=== PATIENT | female | born 1945 | race Caucasian/White ===

== ENCOUNTER 2021-02-03 17:41 | Emergency (ER) | payer MEDICARE, SELFPAY ==
--- NOTE | ~2021-02-03 | XR_ITS ---
EXAMINATION: XR CHEST CLINICAL INFORMATION: Shortness of breath COMPARISON: Chest x-ray on 06/21/2016 TECHNIQUE: Frontal view of the chest was obtained. FINDINGS: No significant abnormality is noted involving the heart, lungs, mediastinum, bony thorax or soft tissues. XR/XR chest 1V IMPRESSION: Unremarkable examination.
[2021-02-03 17:56] VITALS: BP 166/69; PULSE 76; RESP 18; TEMP 36.6; O2SAT 95; BMI 22.8
--- NOTE | 2021-02-03 18:00 | ECG_ITS ---
Test Reason : DYSPNEA Blood Pressure : / mmHG Vent. Rate : 080 BPM Atrial Rate : 080 BPM P-R Int : 142 ms QRS Dur : 078 ms QT Int : 358 ms P-R-T Axes : 053 042 063 degrees QTc Int : 412 ms Normal sinus rhythm Normal ECG No previous ECGs available Referred By: Adalgisa Oquendo Electronically Signed By:TAYLOR VILLA
--- NOTE | 2021-02-03 18:01 | ED.SOB ---
HPI - SOB/Dyspnea General Chief Complaint: Dyspnea Stated Complaint: SOB Time Seen by Provider: 02/03/21 17:48 Source: patient Mode of arrival: ambulatory History of Present Illness HPI Narrative: 75-year-old female with a past medical history of scleroderma, anxiety, sent in from PCPs office with noted hypoxia with an O2 sat of 84% on room air during ambulation in office today. Patient reports worsening SOB, exacerbated on exertion, & chest discomfort with deep inspiration x1 week. Report associated generalized fatigue/weakness, mild cough, chills. Denies fever, chest pain, abdominal pain, nausea/vomiting, pedal edema, cigarette smoking, recent travel, history of blood clots Admits recently finished antibiotics for UTI MD elicited complaint: shortness of breath and pain with inspiration Onset (ago): week(s) Timing: constant and progressively worsening Severity: moderate Relieving factors: rest Associated symptoms: pain with inspiration and lightheadedness Treatment prior to arrival: none Related Data Home Medications Medication Instructions Recorded Confirmed celecoxib 100 mg capsule 1 cap PO BID 02/03/21 02/03/21 lorazepam 1 mg tablet 1 tab PO BEDTIME PRN 02/03/21 02/03/21 omeprazole 20 mg capsule,delayed 20 mg PO DAILY 02/03/21 02/03/21 release Allergies Allergy/AdvReac Type Severity Reaction Status Date / Time codeine [CODEINE] Allergy Mild NAUSEA Unverified 11/20/19 15:43 Review of Systems Review of Systems: Constitutional: No Fever, No Chills, + Fatigue, + Malaise ENT/Mouth: No Ear Pain, No Nasal Congestion, No Sinus Pain, No sore throat, No Rhinorrhea, No Swallowing Difficulty Eyes: No Eye Pain, No Swelling, No Redness, No Discharge, No Vision Changes Cardiovascular: + Chest Pain on deep inspiration, + SOB, + Dyspnea on Exertion, No Orthopnea, No Edema, No Palpitations Respiratory: + Cough, No Smoke Exposure, No Dyspnea Gastrointestinal: No Nausea, No Vomiting, No Diarrhea, No Abdominal pain Genitourinary: No Dysuria, No Hematuria, No Urgency, No Flank Pain Musculoskeletal: No joint pain, No Myalgias, No Joint Swelling Skin: No Skin Lesions, No rash Neuro: No Weakness, No Numbness, No Paresthesias, +lightheadedness (not at present), No Headache Yes all other systems are reviewed and are negative Neurologic: Denies Abnormal speech present [facility] Past Medical History Attestation statement: The following information was validated with the patient. Medical History Anxiety Scleroderma Social History Social History Advance Directives: Yes Advance Directives Information Provided: No Advance Directives on File: No Physical Exam Vital Signs: Vital Signs: Last Vital Signs Temp 98.2 F 02/03/21 19:07 Pulse 74 02/03/21 19:07 Resp 15 02/03/21 19:07 BP 156/71 H 02/03/21 19:07 Pulse Ox 95 02/03/21 19:07 BMI result Body Mass Index 22.8 Const: General: cooperative, comfortable and no acute distress Orientation/consciousness: patient oriented x3 Limitations: no limitations HENMT: Head: Yes normal to inspection Ears: hearing grossly normal bilaterally General nose exam: Normal external nose present Face and sinus: Yes normal facial exam Mouth: Normal oral and palatal mucosa present Throat: Yes posterior oropharynx normal, Yes tonsils normal and Yes uvula midline Eyes: General: appearance normal, both eyes and all related structures EOM: EOMs intact bilaterally Neck: Neck: Yes normal visual inspection and Yes no meningeal signs Resp: Effort & Inspection: normal respiratory effort and not tachypneic Auscultation: clear to auscultation bilaterally, no rales, no rhonchi and no wheezes Cardio: Rate: regular rate Heart sounds: S1 normal heart sound present and S2 normal heart sound present GI: Inspection: Yes normal to inspection Palpation (GI): Soft to palpation, nontender, no guarding and not rigid Skin: Rashes: no rashes Wounds: no wounds Neuro: General: patient oriented x3, gait normal, tone normal, moves all extremities, no meningeal signs, no focal motor deficits and CN's II-XI intact bilaterally Cranial nerves: Yes CN's II-XII intact bilaterally Cognition (Neuro): normal cognition Speech: No Abnormal speech present Gait exam (Neuro): Normal gait present Motor exam (neuro): 5/5 motor strength present throughout, Pronator motor function not present and no tremor noted Extrem: General: Yes normal to inspection and Yes no pedal edema Course Course Course Narrative: -1929--no leukocytosis. D-dimer negative > PE less likely >> patient with history of Raynaud's, difficult to obtain O2 sat on which could be reason for noted hypoxia in office. -Labs otherwise unremarkable including a negative troponin -influenza, RSV, COVID-19 negative XR chest 1V IMPRESSION: Unremarkable examination. > will ambulate with pulse ox in ED for further evaluation -1949--ambulated patient with pulse ox monitor on forehead to avoid artifact from Raynaud's, patient maintained saturation of 96% on RA in no respiratory distress on exertion. Discussed worrisome signs and symptoms and strict return precautions and need close follow-up with PCP. Patient verbalized understanding feel safe for discharge home at this time MDM - SOB/Dyspnea MDM Narrative Medical decision making narrative: 75-year-old female with a past medical history of scleroderma, anxiety, sent in from PCPs office with noted hypoxia with an O2 sat of 84% on room air during ambulation in office today. Patient reports worsening SOB, exacerbated on exertion, & chest discomfort with deep inspiration x1 week. On exam vital signs stable, satting 95% on RA at rest, lungs CTA, no pedal edema, no focal neuro deficits. Concern for viral syndrome/COVID-19 vs PE vs pneumonia or CHF. Lower concern for ACS. Rule out metabolic/infectious etiology Plan: EKG, labs, CXR, COVID-19 testing Differential Diagnosis Differential diagnosis: Likely congestive heart failure, pneumonia, pulmonary embolism and pleural effusion Medical Records Attestation: I reviewed the patient's medical records. Lab Data Attestation: I reviewed the patient's lab results. Result diagrams: 02/03/21 18:20 02/03/21 18:20 Labs: Lab Results 02/03/21 02/03/21 02/03/21 Range/Units 18:20 18:20 18:20 WBC 9.5 (4.8-10.8) X10*3/uL RBC 3.80 L (4.20-5.50) X10*6/uL Hgb 11.5 L (12.0-16.0) g/dl Hct 35.3 L (37.0-47.0) % MCV 92.9 (80.0-98.0) fL MCH 30.3 (27.0-33.0) pg MCHC 32.6 (31.0-35.0) g/dl RDW 12.6 (11.0-16.0) % Plt Count 205 (160-400) X10*3/uL MPV 11.1 (9.4-12.3) fL Immature Gran % (Auto) 0.3 (0.0-0.4) % Neut % (Auto) 70.7 (45-73) % Lymph % (Auto) 13.3 L (20-40) % [place] % (Auto) 9.2 (2-11) % Eos % (Auto) 6.3 H (0-4) % Baso % (Auto) 0.2 (0-2) % Lymph # (Auto) 1.3 (1.2-4.9) X10*3/uL [place] # (Auto) 0.9 (0.1-1.2) X10*3/uL Eos # (Auto) 0.6 H (0.0-0.4) X10*3/uL Baso # (Auto) 0.0 (0.0-0.2) X10*3/uL Abs Immat Gran (auto) 0.03 (0.00-0.03) X10*3/uL Absolute Neuts (auto) 6.7 (2.0-8.3) x10*3/uL Absolute Nucleated RBC 0.000 (0.0-0.012) X10*3/uL Nucleated RBC % (auto) 0.0 (0.0-0.2) /100WBC PT 12.6 (9.9-13.0) SEC INR 1.1 (0.9-1.1) APTT 35.7 (24.1-38.0) SEC D-Dimer High Sensitivty 182 NG/ML Sodium (135-145) mmol/L Potassium (3.3-5.1) mmol/L Chloride (96-108) mmol/L Carbon Dioxide (22-29) mmol/L Anion Gap (12-20) BUN (9-16) mg/dL Creatinine (0.5-1.4) mg/dL Estim Creat Clear Calc Estimated GFR Random Glucose (60-115) mg/dL Calcium (8.4-10.2) mg/dL Magnesium (1.6-2.6) mg/dL Total Bilirubin (0.0-1.0) mg/dL Direct Bilirubin (0.0-0.5) mg/dL AST (5-31) U/L ALT (0-31) U/L Alkaline Phosphatase (39-117) U/L Troponin I High Sens (<3.5-17.0) ng/L B-Natriuretic Peptide (<100) pg/mL Total Protein (6.5-8.0) g/dL Albumin (3.5-5.0) g/dL Influenza Type A (PCR) (Negative) Influenza Type B (PCR) (Negative) RSV RNA Qual (PCR) (Negative) SARS-CoV-2 RNA (RT-PCR) (Negative) 02/03/21 02/03/21 02/03/21 Range/Units 18:20 18:20 18:20 WBC (4.8-10.8) X10*3/uL RBC (4.20-5.50) X10*6/uL Hgb (12.0-16.0) g/dl Hct (37.0-47.0) % MCV (80.0-98.0) fL MCH (27.0-33.0) pg MCHC (31.0-35.0) g/dl RDW (11.0-16.0) % Plt Count (160-400) X10*3/uL MPV (9.4-12.3) fL Immature Gran % (Auto) (0.0-0.4) % Neut % (Auto) (45-73) % Lymph % (Auto) (20-40) % [place] % (Auto) (2-11) % Eos % (Auto) (0-4) % Baso % (Auto) (0-2) % Lymph # (Auto) (1.2-4.9) X10*3/uL [place] # (Auto) (0.1-1.2) X10*3/uL Eos # (Auto) (0.0-0.4) X10*3/uL Baso # (Auto) (0.0-0.2) X10*3/uL Abs Immat Gran (auto) (0.00-0.03) X10*3/uL Absolute Neuts (auto) (2.0-8.3) x10*3/uL Absolute Nucleated RBC (0.0-0.012) X10*3/uL Nucleated RBC % (auto) (0.0-0.2) /100WBC PT (9.9-13.0) SEC INR (0.9-1.1) APTT (24.1-38.0) SEC D-Dimer High Sensitivty NG/ML Sodium 140 (135-145) mmol/L Potassium 4.6 (3.3-5.1) mmol/L Chloride 105 (96-108) mmol/L Carbon Dioxide 24 (22-29) mmol/L Anion Gap 16 (12-20) BUN 11 (9-16) mg/dL Creatinine 0.80 (0.5-1.4) mg/dL Estim Creat Clear Calc 51.6 Estimated GFR > 60 Random Glucose 104 (60-115) mg/dL Calcium 9.2 (8.4-10.2) mg/dL Magnesium 1.9 (1.6-2.6) mg/dL Total Bilirubin 0.8 (0.0-1.0) mg/dL Direct Bilirubin 0.2 (0.0-0.5) mg/dL AST 17 (5-31) U/L ALT 14 (0-31) U/L Alkaline Phosphatase 91 (39-117) U/L Troponin I High Sens < 3.5 (<3.5-17.0) ng/L B-Natriuretic Peptide 47 (<100) pg/mL Total Protein 6.6 (6.5-8.0) g/dL Albumin 3.8 (3.5-5.0) g/dL Influenza Type A (PCR) NEGATIVE (Negative) Influenza Type B (PCR) NEGATIVE (Negative) RSV RNA Qual (PCR) NEGATIVE (Negative) SARS-CoV-2 RNA (RT-PCR) NEGATIVE (Negative) ECG Data Attestation: I personally reviewed and interpreted this ECG as follows: ECG interpretation date: 02/03/21 ECG interpretation time: 18:05 Interpretation: EKG normal sinus rhythm at a rate of 80. Pr interval 142. QTC 412. Nonischemic/no STEMI Discharge Plan Discharge Clinical Impression: Exertional dyspnea Patient Disposition: Home, Self-Care Instructions: Dyspnea (ED) Additional Instructions: Your blood work and chest x-ray were reassuring today You tested negative for COVID-19, the flu, and RSV Please have close follow-up with her primary care doctor If her symptoms persist or worsen, you develop chest pain, constant shortness of breath, or fever please return to the emergency department Prescriptions: No Action lorazepam 1 mg tablet 1 tab PO BEDTIME PRN (Reason: Anxiety) RF: 0 omeprazole 20 mg Capsule,Delayed Release(Dr/Ec) 20 mg PO DAILY RF: 0 celecoxib 100 mg capsule 1 cap PO BID RF: 0 Referrals: Lulú Jay NP [Primary Care Provider] - 2 days
--- NOTE | 2021-02-03 18:06 | PHA.MEDREC ---
Pharmacy Consult ? Medication Reconciliation Pharmacy has completed the medication reconciliation. I was able to speak with the patients who gave me her medication history with great detail.
[2021-02-03 18:28] LABS: MANUAL DIFF FLAG NO
[2021-02-03 18:34] LABS: Basophils Percent Auto 0.2 % (0-2); Eosinophils Absolute Auto 0.6 X10*3/uL (0.0-0.4); Eosinophils Percent Auto 6.3 % (0-4); Hematocrit 35.3 % (37.0-47.0); Hemoglobin 11.5 g/dl (12.0-16.0); Imm Gran Abs Auto 0.03 X10*3/uL (0.00-0.03); Imm Gran Pct Auto 0.3 % (0.0-0.4); Lymphocytes Absolute Auto 1.3 X10*3/uL (1.2-4.9); Lymphocytes Percent Auto 13.3 % (20-40); Mean Corpuscular HGB Conc 32.6 g/dl (31.0-35.0); Mean Corpuscular Hemoglobin 30.3 pg (27.0-33.0); Mean Corpuscular Volume 92.9 fL (80.0-98.0); Mean Platelet Volume 11.1 fL (9.4-12.3); Monocytes Absolute Auto 0.9 X10*3/uL (0.1-1.2); Monocytes Percent Auto 9.2 % (2-11); Neutrophils Absolute Auto 6.7 x10*3/uL (2.0-8.3); Neutrophils Percent Auto 70.7 % (45-73); Platelet Count 205 X10*3/uL (160-400); Red Cell Distribution Width 12.6 % (11.0-16.0); White Blood Count 9.5 X10*3/uL (4.8-10.8)
[2021-02-03 18:35] LABS: INTERNATIONAL NORM RATIO 1.1 (0.9-1.1); Prothrombin Time 12.6 SEC (9.9-13.0)
[2021-02-03 18:37] LABS: D Dimer High Sensitivity 182 NG/ML
[2021-02-03 18:38] LABS: Partial Thromboplastin Time 35.7 SEC (24.1-38.0)
[2021-02-03 18:57] LABS: Alanine Aminotransferase 14 U/L (0-31); Albumin Level 3.8 g/dL (3.5-5.0); Alkaline Phosphatase 91 U/L (39-117); Anion Gap 16 (12-20); Aspartate Amino Transferase 17 U/L (5-31); Bilirubin Direct 0.2 mg/dL (0.0-0.5); Bilirubin Total 0.8 mg/dL (0.0-1.0); Blood Urea Nitrogen 11 mg/dL (9-16); Calcium 9.2 mg/dL (8.4-10.2); Carbon Dioxide 24 mmol/L (22-29); Chloride 105 mmol/L (96-108); Creatinine Clr Calc Pharmacy 51.6; Estimated Glomerular Filt Rate > 60; Glucose Random 104 mg/dL (60-115); Magnesium 1.9 mg/dL (1.6-2.6); Potassium 4.6 mmol/L (3.3-5.1); Sodium 140 mmol/L (135-145); Total Protein 6.6 g/dL (6.5-8.0)
[2021-02-03 18:58] LABS: B Type Natriuretic Peptide 47 pg/mL (<100); Troponin-I High Sensitivity < 3.5 ng/L (<3.5-17.0)
[2021-02-03 19:07] VITALS: BP 156/71; PULSE 74; RESP 15; TEMP 36.8; O2SAT 95
[2021-02-03 19:12] LABS: Influenza A PCR NEGATIVE (Negative); Influenza B PCR NEGATIVE (Negative); Resp Syncy Virus RNA Qual PCR NEGATIVE (Negative); SARS COV2 PCR INHOUSE NEGATIVE (Negative)
--- NOTE | 2021-02-03 19:14 | PC.NURSE ---
Pt aaox4, resting on stretcher in nad, breathing with ease on RA, VSS, denies pain/discomfort. Pt reports no SOB while at rest, no pain on inspiration. Pt updated on lab results, is aware that covid continues to be pending. Pt made aware of need for UA, pt states I really don't think that's necessary. This RN explains to pt that her treatment for previous UTI may not have been effective. Pt states I don't think that's it. Pt states I don't want to do that, I don't want to give a urine sample. Pt's stretcher in lowest locked position, rails raised, call mclaughlin within reach, at bedside.
== END 2021-02-03 20:10 | disposition home or self-care (01) ==
PROVIDERS: Physician Assistant; Emergency Provider Emergency Medicine Emergency Medical Services; PCP Nurse Practitioner Family
DX: R06.02 Shortness of breath (principal); Z20.822 Contact with and (suspected) exposure to COVID-19; Z87.440 Personal history of urinary (tract) infections
CPT/HCPCS: 0241U; 36415; 71045; 80048; 80076; 83735; 83880; 84484; 85025; 85379; 85610; 85730; 93005; 99283; 99284

== ENCOUNTER 2021-05-18 12:57 | Outpatient (REF) | payer MEDICARE, SELFPAY ==
--- NOTE | ~2021-05-18 | XR_ITS ---
EXAMINATION: XR wrist LT min 3V CLINICAL INFORMATION: Pain COMPARISON: Hand radiographs 12/14/2014 TECHNIQUE: 3 views of the wrist XR/XR wrist LT min 3V FINDINGS/IMPRESSION: Generalized osteopenia which somewhat limits evaluation. No fracture or dislocation. Joint spaces are maintained. Soft tissues are unremarkable.
== END 2021-05-18 12:58 | disposition home or self-care (01) ==
LOC: HO.HOSX 12:57
PROVIDERS: Visit Provider Physician Assistant
DX: M25.532 Pain in left wrist (principal)
CPT/HCPCS: 73110; 99202

== ENCOUNTER 2021-06-10 15:57 | Outpatient (REF) | payer MEDICARE, SELFPAY ==
--- NOTE | ~2021-06-10 | MR_ITS ---
EXAMINATION: MRI WITHOUT CONTRAST WRIST, LEFT CLINICAL INFORMATION: Benign lipomatous neoplasm COMPARISON: Radiographs 05/18/2021. TECHNIQUE: MRI without contrast is performed on the left wrist. FINDINGS: The extensor carpi ulnaris tendon is completely torn. Distally, the end of the tendon is thickened and located at the level of the triquetrum and proximally, along the dorsal/ulnar aspect of the distal ulna. The gap is approximately 3.5-4.0 cm. Flexor and extensor tendons appear otherwise intact. The carpal tunnel is unremarkable. There is a small radiocarpal joint effusion. The scapholunate and lunotriquetral ligaments are grossly intact. There is moderate osteoarthritis of the triscaphoid articulation. Degeneration/mild partial tearing at the radial attachment of the triangular fibrocartilage complex. No fluid signal intensity full-thickness defect. MR/MR wrist LT wo con IMPRESSION: Complete tear of the extensor carpi ulnaris tendon as described. No soft tissue mass. Moderate triscaphoid osteoarthritis. Small radiocarpal joint effusion. Probable degeneration/mild partial tearing at the radial attachment of the TFCC.
== END 2021-06-10 15:58 | disposition home or self-care (01) ==
LOC: HO.MRI 15:57
PROVIDERS: Visit Provider Physician Assistant
DX: D17.9 Benign lipomatous neoplasm, unspecified (principal)
CPT/HCPCS: 73221

== ENCOUNTER → 2021-06-28 13:13 | Outpatient (BNVA) | payer MEDICARE, SELFPAY | PROVIDERS: PCP Internal Medicine; Visit Provider Orthopaedic Surgery | DX: S66.819A Strain of other specified muscles, fascia and tendons at wrist and hand level, unspecified hand, initial encounter (principal) | CPT/HCPCS: Q3014 ==

== ENCOUNTER → 2021-07-26 13:41 | Outpatient (BNVA) | payer MEDICARE, SELFPAY | PROVIDERS: PCP Internal Medicine; Visit Provider Orthopaedic Surgery | DX: S66.812A Strain of other specified muscles, fascia and tendons at wrist and hand level, left hand, initial encounter (principal) | CPT/HCPCS: 20550; 99212; J1100 ==

== ENCOUNTER 2024-08-18 08:01 | Outpatient (REF) | payer MEDICARE, SELFPAY ==
--- OUTSIDE RECORDS SUMMARY | 2024-08-18 08:06 | XMS_ITS | Patient Health Record ---
Author Organization [facility] Michelle bryson [place] Address [address] [place] [address] Care Team Providers Care Line Appliance Assembler Name Role Phone Misty SHARP, Lulú Primary Care Provider Yosef Bejarano Unavailable [phone] Allergies Allergen (clinical drug ingredient) Drug/Non Drug Allergy documented on EMR Reaction Allergy Type Onset Date Status Codeine Phosphate Unknown Drug Allergy Active Reason For Referral Diagnosis 1 Hallux valgus (acqui red), left foot (M20.12) Diagnosis 2 Hallux valgus (acqui red), right foot (M20.11) Diagnosis 3 Pain in right foot ( M79.671) Diagnosis 4 Pain in left foot (M 79.672) Diagnosis 5 Unspecified atherosc lerosis of [place] arteries of extremities, bilateral legs (I70.203) Diagnosis 6 Metatarsalgia, right foot (M77.41) Diagnosis 7 Raynaud's disease wi thout gangrene (I73.00) Referring Provider First Name Kobi Referring Provider Last Name Soar [facility] Provider Yosef Harvey Referred Address [address] [facility],[place], [place],[address], Referred Provider Specialty Podiatry Referral Priority Routine Medications Medication SIG (Take, Route, Frequency, Duration) Notes Start Date End Date Status D3 Vitamin Active B-12 1000 MCG 1 tablet under the tongue and allow to dissolve Sublingual Once a day for 30 day(s) Active LORazepam 1 MG 1 tablet at bedtime as needed Orally Once a day Active LORazepam 1 MG 1 tablet at bedtime as needed Orally Once a day Not-Taking Cyclobenzaprine HCl 5 MG as directed Ora lly Twice a day Active Celecoxib 100 MG 1 capsule with food Orally Once a day for 30 day(s) Not-Taking CeleBREX 100 MG 1 capsule with food Orally Twice a day Active Omeprazole 20 MG 1 capsule 30 minutes before morning meal Orally Once a day for 30 day(s) Not-Taking Acid Controller Max St 20 MG 1 tablet at bedtime as needed Orally Once a day for 30 day(s) Not-Taking Nitro-Bid 2 % as directed Transdermal Not-Taking Nitro-Bid 2 % as directed Transdermal on toe Not-Taking Famotidine 20 MG as directed Orally Three times a day Not-Taking Cholecalciferol 25 MCG (1000 UT) 2 tablets Orally Daily Not-T aking B Complex - as directed Orally Not-Taking Social History Tobacco Use: Social History Observation Description Date Details (start date - stop date) Never Smoker NA - NA Tobacco use other than smoking: Question Answer Notes Are you an other tobacco user? No Tobacco Control (Standard) Question Answer Notes Tobacco use: Nonsmoker Additional Findings: Tobacco non-user Current no nsmoker AUDIT-C (Standard) Question Answer Notes Did you have a drink containing alcohol in the p ast year? No Points 0 Interpretation Negative Problems Problem Type SNOMED Code ICD Code Onset Dates Problem Status W/U Status Risk Notes Problem Bilateral atherosclerosis of arteries of lower limbs (disorder) (32709281217103248 ) Unspecified atherosclerosis of [place] arteries of extremities, bilateral legs (I70.203) Active confirmed Problem Acquired hallux valgus (43542053) Hallux valgus (acquired), left foot (M20.12) Active confirmed Problem Acquired hallux valgus (32810170) Hallux valgus (acquired), right foot (M20.11) Active confirmed Problem [id number] Raynaud's diseas e without gangrene (I73.00) Active confirmed Vital Signs Blood pressure diastolic 80 mm Hg 03/18/2024 Height 5 ft 4 in in 03/18/2024 Blood pressure systolic 143 mm Hg 03/18/2024 Weight 122 lbs 03/18/2024 BMI 20.94 kg/m2 03/18/2024 Encounters Encounter Location Date Provider Diagnosis [facility] [address] [address] 03/18/2024 Yosef Harvey Pain in left foot M79.672 ; Hallux valgus (acquired), left foot M20.12 ; Pain in right foot M79.671 and Hallux valgus (acquired), right foot M20.11 [facility] [place] [address] [place] [address] 05/09/2024 Yosef Harvey Assessments Encounter Date Diagnosis (ICD Code) Assessment Notes Treatment Notes Treatment Clinical Notes Section Notes 03/18/2024 Pain in left foot (ICD-10 - M79.672) 03/18/2024 Hallux valgus (acquired), left foot (ICD-10 - M20.12) 03/18/2024 Pain in right foot (ICD-10 - M79.671) 03/18/2024 Hallux valgus (acquired), right foot (ICD-10 - M20.11) Application of an aperature pad right foot to alleviate pressure Plan Of Treatment Pending Test Test Name Order Date X ray : Foot, left 3V 09/14/2022 X ray : Foot, right 3V 09/14/2022 [id number] SKIN LESIONS, 2 TO 4 09/15/19 23 Insurance Providers Payer Name Payer Address Payer Phone Subscriber Number Group Number Insured Name Patient Relationship to Insured Coverage Start Date Coverage End Date [employer] 65 Medicare Preferred [address] [place] [address] [phone] [id number] Yolis Brizuela Self - patient is the insured Medical (General) History Medical History History ICD Code Anxiety Carpal tunnel Depression Reflux ( GERD) Intermittent Vertigo- chronic Scleroderma Headaches sleep disturbances Hyperlipidemia chronic fatigue syndrome Skin ulcer-toes raynauds disease Measles Mumps Chicken pox Surgical History Surgery Date(Month/Year) carpal tunnel release - right tonsillectomy tubal ligation eye surgery - left cataract surgery - bilateral
[2024-08-18 10:29] LABS: Hematocrit 37.3 % (37.0-47.0); Hemoglobin 12.3 g/dl (12.0-16.0); Mean Corpuscular Hemoglobin 29.9 pg (27.0-33.0); Mean Corpuscular Volume 90.8 fL (80.0-98.0); Mean Platelet Volume 12.3 fL (9.4-12.3); Platelet Count 247 X10*3/uL (160-400); Red Blood Count 4.11 X10*6/uL (4.20-5.50); Red Cell Distribution Width 12.9 % (11.0-16.0)
[2024-08-18 10:38] LABS: D Dimer High Sensitivity < 150 NG/ML
[2024-08-18 10:57] LABS: Alanine Aminotransferase < 6 U/L (0-31); Albumin Level 4.1 g/dL (3.5-5.0); Alkaline Phosphatase 53 U/L (39-117); Anion Gap 11 (12-20); Aspartate Amino Transferase 23 U/L (5-31); Bilirubin Total 0.7 mg/dL (0.0-1.0); Blood Urea Nitrogen 15 mg/dL (9-16); Calcium 9.6 mg/dL (8.4-10.2); Carbon Dioxide 27 mmol/L (22-29); Chloride 106 mmol/L (96-108); Cholesterol 250 mg/dL (<200); Estimated Glomerular Filt Rate 42; Glucose Fasting 92 mg/dL (60-99); Glucose Random 92 mg/dL (60-115); HDL Cholesterol 45 mg/dL (>40); Iron 68 mcg/dL (30-160); LDL Cholesterol Calculated 176 mg/dL (<100); Percent Iron Saturation 27 % (15-50); Potassium 4.4 mmol/L (3.3-5.1); Sodium 140 mmol/L (135-145); Total Iron Binding Capacity 249 mcg/dL (228-428); Total Protein 7.1 g/dL (6.5-8.0); Triglycerides 145 mg/dL (<150); Unsaturated Iron Binding 181 ug/dL
[2024-08-18 11:12] LABS: TSH reflex Free T4 4.26 uIU/mL (0.32-4.0); Vitamin D 25-OH Total > 154.2 ng/mL (>30)
[2024-08-18 12:01] LABS: Free T4 (Free Thyroxine) 1.13 ng/dL (0.71-1.85)
== END 2024-08-18 08:02 | disposition home or self-care (01) ==
LOC: HO.HMGCLDS 08:01
PROVIDERS: PCP Physician Assistant Surgical; Visit Provider Physician Assistant Surgical
DX: Z00.00 Encounter for general adult medical examination without abnormal findings (principal); R06.09 Other forms of dyspnea; E78.2 Mixed hyperlipidemia
CPT/HCPCS: 36415; 80053; 80061; 82306; 83540; 84439; 84443; 85027; 85379

== ENCOUNTER 2024-09-01 10:08 | Emergency (ER) | payer MEDICARE, SELFPAY ==
[2024-09-01] VITALS (9 sets, daily range): BP systolic 181–204; BP diastolic 65–91; PULSE 55–78; RESP 12–18; TEMP 36.4–37.1; O2SAT 96–99; BMI 19.4
--- NOTE | ~2024-09-01 | CT_ITS ---
EXAMINATION: CT HEAD WITHOUT CONTRAST CLINICAL INFORMATION: Hypertension COMPARISON: None available. TECHNIQUE: Contiguous axial imaging was performed from the skull base to vertex without intravenous administration of contrast. This CT examination was performed using dose optimization techniques as appropriate, variously including the following: *Automated exposure control *Adjustment of mA and/or kV according to patient size (this includes techniques or standardized protocols for targeted exams where dose is matched to indication/reason for exam; i.e. extremities or head) *Use of iterative reconstruction technique DLP: 547 mGY*cm FINDINGS: There is no acute ischemic change. There is no intracranial hemorrhage. There is no mass-effect or midline shift. Basal cisterns and ventricles are within normal limits for age/cerebral volume. Orbits are symmetrical and unremarkable. Paranasal sinuses and mastoid air cells are pneumatized. There are no bony abnormalities. CT/CT head/brain wo IV con IMPRESSION: No acute intracranial abnormality. Electronically signed by: Parveen Arriola MD 09/01/2024 01:58 PM EDT
--- NOTE | 2024-09-01 11:12 | ED_ITS ---
HPI - General Adult General Chief complaint: General Medical Stated complaint: bp 207/69 Time Seen by Provider: 09/01/24 11:39 Source: patient and RN notes reviewed Mode of arrival: ambulatory Limitations: no limitations History of Present Illness ED Provider: Sejal Boogie PA-C HPI narrative: This is a 79-year-old female, with a hx of scleroderma, anxiety, who presents emergency department with concerns of elevated blood pressure. Patient states that over the last several days she has been monitoring her blood pressure - as they recently have been taking the blood pressure of her 's. She has been recording them they have been varying between on the low end 120s over 60s to the highest of 215/137. Patient states that she called her primary care physician who instructed her to go to the emergency room for further evaluation. Patient reports that she has had headaches over the last 5-6 months. She states that she takes ibuprofen daily. Patient states that over the last several weeks she has also had some neck pain. She also reports that over the last several days she has had some abdominal cramping. She denies any fevers, chills, chest pain, shortness of breath, nausea, vomiting. No diarrhea or constipation. No bloody or black stool. No urinary symptoms. No other complaints or concerns at this time. MD complaint: Elevated blood pressure Onset (ago): day(s) Quality: aching Pain Consistency: constant Relieving factors: none Exacerbating factors: none Associated symptoms: denies other symptoms Treatments prior to arrival: none Related Data Home Medications ?Medication ?Instructions ?Recorded ?Confirmed celecoxib 100 mg capsule 1 cap PO BID 02/03/21 lorazepam 1 mg tablet 1 tab PO BEDTIME PRN Anxiety 02/03/21 02/03/21 omeprazole 20 mg capsule,delayed 20 mg PO DAILY 02/03/21 release benzonatate 100 mg capsule 100 mg PO TID PRN cough clobetasol 0.05 % topical gel g topical 07/26/21 cyclobenzaprine 5 mg tablet 5 mg PO BID PRN 07/26/21 Previous Rx's ?Medication ?Instructions ?Recorded amlodipine 5 mg tablet 5 mg PO DAILY 30 days #30 ta bs 09/01/24 Allergies Allergy/AdvReac Type Severity Reaction Status Date / Time codeine (CODEINE) Allergy Mild NAUSEA Verified 09/01/24 12:43 Review of Systems 2 Review of Systems: Yes all other systems are reviewed and are negative Constitutional: Constitutional: Reports as per [facility] Past Medical History Medical History Anxiety Scleroderma Social History Social History Current occupational status: retired Current occupation: Left hand Physical Exam ED Vital Signs: Vital Signs - 24 hr 09/01/24 11:14 09/01/24 13:04 09/01/24 14:40 Temperature 98.7 F Pulse Rate 67 55 65 Respiratory Rate 16 18 16 Blood Pressure 201/72 H 204/88 H 200/82 H Pulse Oximetry 97 99 96 Oxygen Delivery Method Room Air Room Air Room Air 09/01/24 14:41 09/01/24 16:17 09/01/24 17:11 Temperature Pulse Rate 67 63 Respiratory Rate 12 Blood Pressure 195/91 H 195/86 H 181/65 H Pulse Oximetry Oxygen Delivery Method 09/01/24 17:54 09/01/24 18:12 09/01/24 18:38 Temperature 97.6 F 97.6 F Pulse Rate 63 78 78 Respiratory Rate 14 18 18 Blood Pressure 186/78 H 186/73 H 186/73 H Pulse Oximetry Oxygen Delivery Method BMI result Body Mass Index 19.4 Const General: cooperative, comfortable and no acute distress Orientation/consciousness: patient oriented x3 Limitations: no limitations HENMT Head: Yes normal to inspection, Yes normocephalic and Yes atraumatic Ears: hearing grossly normal bilaterally General nose exam: Normal external nose present Face and sinus: Yes normal facial exam Mouth: Normal oral and palatal mucosa present, oropharynx normal and moist mucous membranes Throat: Yes posterior oropharynx normal Eyes General: appearance normal, both eyes and all related structures Eyelids: Yes eyelids normal Conjunctivae: conjunctivae normal Sclerae: sclerae normal Pupils: Equal, round and reactive pupils present EOM: EOMs intact bilaterally Neck Neck: Yes normal visual inspection, Yes full ROM and Yes no lymphadenopathy Lymphatic: no lymphadenopathy noted Chest Chest palpation & inspection: normal inspection of the chest Resp Effort & Inspection: normal respiratory effort and able to speak in complete sentences Auscultation: clear to auscultation bilaterally, no crackles, no rales, no rhonchi and no wheezes Cardio Rate: regular rate Rhythm: regular rhythm Heart sounds: S1 normal heart sound present and S2 normal heart sound present GI Other: Abdomen is soft with mild tenderness palpation diffusely. Inspection: Yes normal to inspection Skin General skin exam: no rashes or lesions noted Trauma: no lacerations or abrasions Wounds: no wounds Neuro General: patient oriented x3 and moves all extremities Cranial nerves: Yes CN's II-XII intact bilaterally and Yes Equal, round and reactive pupils present Cognition (Neuro): normal cognition Gait exam (Neuro): Normal gait present Motor exam (neuro): 5/5 motor strength present throughout and Pronator motor function not present Extrem General: Yes normal to inspection Right upper extremity: normal to inspection Left upper extremity: normal to inspection Right lower extremity: normal to inspection Left lower extremity: normal to inspection Course Course Course Narrative: RME performed by Kay Abbott PA-C. Patient is a 79 year old assigned female at presenting to the emergency department with high blood pressure. Patient states that she called her primary care provider and she was told to come to the ER. Detailed physical exam and review of systems are deferred to the intake clinician. EKG and labs ordered. Patient placed back in the waiting room pending room availability and results. Medications Administered Discontinued Medications Generic Name Dose Route Start Last Admin Trade Name Ramses PRN Reason Stop Dose Admin Acetaminophen 650 mg 09/01/24 12:15 09/01/24 12:43 Acetaminophen 325 Mg Tablet PO 09/01/24 12:16 650 mg ONCE ONE Administration Amlodipine Besylate 5 mg 09/01/24 14:16 09/01/24 14:41 Amlodipine Besylate 5 Mg Tablet PO 09/01/24 14:17 5 mg ONCE ONE Administration Protocol Labetalol HCl 5 mg 09/01/24 15:55 09/01/24 16:17 Labetalol Hcl 100 Mg/20 Ml Vial IVPUSH 09/01/24 15:56 5 mg ONCE ONE Administration Medical Decision Making Medical Decision Making [facility] Narrative: This is a 79-year-old female who presents emergency department due to elevated blood pressure readings at home. She states that she has no known history of high blood pressure. She has been recording her blood pressure at home as her has been has been monitoring his blood pressure. On arrival, blood pressure 201/72. Patient does report that she has had a headache however states that this is a chronic headache that she has had for many months. Does not seem that patient is experiencing symptomatic hypertensiono. I discussed this case with my attending physician, Dr. Le, will attempt to treat pain. We will also obtain CT head to rule out any intracranial mass, or any acute findings. BP remains to be elevated, despite PO amlodipine. Discussed with Dr. Le, Labetalol 5mg IV ordered. Labs were obtained, she has no leukocytosis, H&H stable, troponin x2 negative. EKG nonischemic. Blood pressure improved, patient feeling well and eager for discharge. Given that patient does not have any evidence of end organ damage, she can be discharged with close follow-up. Given strict return precautions. Educated the importance of taking blood pressure readings and calling primary tomorrow. Will start on amlodipine 5 mg. Patient stable for discharge. Differential Diagnosis Differential Diagnoses: The differential diagnosis associated with the presentation includes electrolyte derangement, HTN urgency, emergency, elevated BP reading, headache Admission/Observation Consideration of admission/observation: Escalation of care including admission/observation considered Lab Data MDM Lab Attestation statement: I reviewed the patient's lab results. No leukocytosis, normocytic anemia nooted with H&H adele 11.8/36.4, CHEM with no electrolyte derangements. 09/01/24 11:34 09/01/24 11:34 Labs: Lab Results 09/01/24 09/01/24 09/01/24 Range/Units 11:34 14:42 17:30 WBC 6.7 (4.8-10.8) X10*3/uL RBC 3.96 L (4.20-5.50) X10*6/uL Hgb 11.8 L (12.0-16.0) g/dl Hct 36.4 L (37.0-47.0) % MCV 91.9 (80.0-98.0) fL MCH 29.8 (27.0-33.0) pg MCHC 32.4 (31.0-35.0) g/dl RDW 12.6 (11.0-16.0) % Plt Count 204 (160-400) X10*3/uL MPV 11.1 (9.4-12.3) fL Immature Gran % (Auto) 0.3 (0.0-0.4) % Neut % (Auto) 60.7 (45-73) % Lymph % (Auto) 26.8 (20-40) % [place] % (Auto) 8.8 (2-11) % Eos % (Auto) 3.0 (0-4) % Baso % (Auto) 0.4 (0-2) % Lymph # (Auto) 1.8 (1.2-4.9) X10*3/uL [place] # (Auto) 0.6 (0.1-1.2) X10*3/uL Eos # (Auto) 0.2 (0.0-0.4) X10*3/uL Baso # (Auto) 0.0 (0.0-0.2) X10*3/uL Abs Immat Gran (auto) 0.02 (0.00-0.03) X10*3/uL Absolute Neuts (auto) 4.1 (2.0-8.3) x10*3/uL Absolute Nucleated RBC 0.000 (0.0-0.012) X10*3/uL Nucleated RBC % (auto) 0.0 (0.0-0.2) /100WBC Sodium 142 (135-145) mmol/L Potassium 4.1 (3.3-5.1) mmol/L Chloride 108 (96-108) mmol/L Carbon Dioxide 26 (22-29) mmol/L Anion Gap 12 (12-20) BUN 17 H (9-16) mg/dL Creatinine 1.04 (0.5-1.4) mg/dL Estim Creat Clear Calc 34.9 Estimated GFR 51 Random Glucose 84 (60-115) mg/dL Calcium 8.8 D (8.4-10.2) mg/dL Total Bilirubin 0.7 (0.0-1.0) mg/dL AST 21 (5-31) U/L ALT < 6 (0-31) U/L Alkaline Phosphatase 50 (39-117) U/L Troponin I High Sens 3.1 5.2 D (<3.5-17.0) ng/L Total Protein 6.7 (6.5-8.0) g/dL Albumin 3.9 (3.5-5.0) g/dL Urine Color Yellow Urine Appearance Clear Urine pH 6.5 (5.0-9.0) Ur Specific [place] 1.010 (1.005-1.025) Urine Protein Negative (Neg-Trace) mg/dL Urine Glucose (UA) Negative (Negative) mg/dL Urine Ketones Negative (Negative) mg/dL Urine Blood Trace H (Negative) Urine Nitrite Negative (Negative) Ur Leukocyte Esterase Negative (Negative) Urine RBC 0-2 (0-2) /HPF Urine WBC 0-5 (0-5) /HPF Ur Squamous Epith Cells 0-2 (0-2) /HPF Urine Bacteria None Seen (None Seen) Hyaline Casts 0-2 (0-2) /LPF Independent Interpretation I performed an independent interpretation of an: EKG Interpretation: Vent. Rate : 68 BPM Atrial Rate : 68 BPM P-R Int : 140 ms QRS Dur : 74 ms QT Int : 380 ms P-R-T Axes : 70 59 67 degrees QTcB Int : 404 ms Sinus rhythm with Premature supraventricular complexes and with occasional Premature ventricular complexes No STEMI. Radiology Impression Discussion of test interpretation with radiology: I have reviewed the radiologist's reading. Radiologist Impression: [place] [id number] CT Scan Report Signed Patient: Yolis Brizuela MR#: [id number] : 1945 Acct:[id number] Age/Sex: 79 / F ADM Date: 09/01/24 Loc: .ED Attending Dr: Ordering Physician: Sejal Spear Date of Service: 09/01/24 Procedure(s): CT head/brain wo IV con Accession Number(s): [id number] cc: Sejal Spear; Pro Donahue PA-C~ Report Number: [id number]: Total DLP = 547.00 mGy-cm EXAMINATION: CT HEAD WITHOUT CONTRAST CLINICAL INFORMATION: Hypertension COMPARISON: None available. TECHNIQUE: Contiguous axial imaging was performed from the skull base to vertex without intravenous administration of contrast. This CT examination was performed using dose optimization techniques as appropriate, variously including the following: *Automated exposure control *Adjustment of mA and/or kV according to patient size (this includes techniques or standardized protocols for targeted exams where dose is matched to indication/reason for exam; i.e. extremities or head) *Use of iterative reconstruction technique DLP: 547 mGY*cm FINDINGS: There is no acute ischemic change. There is no intracranial hemorrhage. There is no mass-effect or midline shift. Basal cisterns and ventricles are within normal limits for age/cerebral volume. Orbits are symmetrical and unremarkable. Paranasal sinuses and mastoid air cells are pneumatized. There are no bony abnormalities. CT/CT head/brain wo IV con IMPRESSION: No acute intracranial abnormality. Electronically signed by: Parveen Arriola MD 09/01/2024 01:58 PM EDT RP Independent Historian Clinical information obtained from an independent historian. History obtained from or confirmed by: Spouse Discharge Plan Discharge Clinical Impression: Elevated blood pressure reading Patient Disposition: Home, Self-Care Instructions: Heart Healthy Diet (ED), DASH Eating Plan (ED), Hypertension (ED), Hypertension in the Older Adult (ED) Additional Instructions: You were seen in the emergency department due to elevated blood pressure readings. We are starting you on a blood pressure medication, please take this once a day. Elevated blood pressure readings can be very dangerous and lead to heart attacks and stroke. Drink plenty of fluids get plenty of rest. Please continue watching her blood pressure at home. You need to call your primary care physician tomorrow for a urgent follow-up appointment. If any new or worsening symptoms occur including but not limited to severe chest pain, shortness of breath, severe headache, dizziness, please seek emergent care. Prescriptions: New amlodipine 5 mg tablet 5 mg PO DAILY 30 Days Qty: 30 0RF No Action lorazepam 1 mg tablet 1 tab PO BEDTIME PRN (Reason: Anxiety) omeprazole 20 mg Capsule,Delayed Release(Dr/Ec) 20 mg PO DAILY celecoxib 100 mg capsule 1 cap PO BID cyclobenzaprine 5 mg tablet 5 mg PO BID PRN benzonatate 100 mg capsule 100 mg PO TID PRN (Reason: cough) clobetasol 0.05 % gel topical Interventions: ED Discharge Assessment Last Done: 09/01/24 18:38 Discharge Date/Time: 09/01/24 18:39 Print Language: Upper Sorbian
--- NOTE | 2024-09-01 11:18 | ECG_ITS ---
Test Reason : htn Blood Pressure : */* mmHG Vent. Rate : 68 BPM Atrial Rate : 68 BPM P-R Int : 140 ms QRS Dur : 74 ms QT Int : 380 ms P-R-T Axes : 70 59 67 degrees QTcB Int : 404 ms Sinus rhythm with Premature supraventricular complexes and with occasional Premature ventricular complexes Nonspecific ST and T wave abnormality Abnormal ECG When compared with ECG of 03-Feb-2021 18:05, Premature ventricular complexes are now Present Premature supraventricular complexes are now Present Referred By: Kay Abbott Electronically Signed By: TONYA MATIAS MD
[2024-09-01 11:40] LABS: MANUAL DIFF FLAG NO
[2024-09-01 11:47] LABS: Basophils Percent Auto 0.4 % (0-2); Eosinophils Absolute Auto 0.2 X10*3/uL (0.0-0.4); Hematocrit 36.4 % (37.0-47.0); Hemoglobin 11.8 g/dl (12.0-16.0); Imm Gran Abs Auto 0.02 X10*3/uL (0.00-0.03); Imm Gran Pct Auto 0.3 % (0.0-0.4); Lymphocytes Absolute Auto 1.8 X10*3/uL (1.2-4.9); Lymphocytes Percent Auto 26.8 % (20-40); Mean Corpuscular HGB Conc 32.4 g/dl (31.0-35.0); Mean Corpuscular Hemoglobin 29.8 pg (27.0-33.0); Mean Corpuscular Volume 91.9 fL (80.0-98.0); Mean Platelet Volume 11.1 fL (9.4-12.3); Monocytes Absolute Auto 0.6 X10*3/uL (0.1-1.2); Monocytes Percent Auto 8.8 % (2-11); Neutrophils Absolute Auto 4.1 x10*3/uL (2.0-8.3); Neutrophils Percent Auto 60.7 % (45-73); Platelet Count 204 X10*3/uL (160-400); Red Blood Count 3.96 X10*6/uL (4.20-5.50); Red Cell Distribution Width 12.6 % (11.0-16.0); White Blood Count 6.7 X10*3/uL (4.8-10.8)
[2024-09-01 11:59] LABS: Alanine Aminotransferase < 6 U/L (0-31); Albumin Level 3.9 g/dL (3.5-5.0); Alkaline Phosphatase 50 U/L (39-117); Anion Gap 12 (12-20); Aspartate Amino Transferase 21 U/L (5-31); Bilirubin Total 0.7 mg/dL (0.0-1.0); Blood Urea Nitrogen 17 mg/dL (9-16); Calcium 8.8 mg/dL (8.4-10.2); Carbon Dioxide 26 mmol/L (22-29); Chloride 108 mmol/L (96-108); Creatinine Clr Calc Pharmacy 34.9; Estimated Glomerular Filt Rate 51; Glucose Random 84 mg/dL (60-115); Potassium 4.1 mmol/L (3.3-5.1); Sodium 142 mmol/L (135-145); Total Protein 6.7 g/dL (6.5-8.0)
[2024-09-01 12:02] LABS: Troponin-I High Sensitivity 3.1 ng/L (<3.5-17.0)
--- OUTSIDE RECORDS SUMMARY | 2024-09-01 12:30 | XMS_ITS | Patient Health Record ---
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, bilateral legs (I70.203) Diagnosis 6 Metatarsalgia, right foot (M77.41) Diagnosis 7 Raynaud's disease wi thout gangrene (I73.00) Referring Provider First Name Kobi Referring Provider Last Name Alejandraar [facility] Provider Yosef Harvey Referred Address [address] [facility],[place],[address], Referred Provider Specialty Podiatry Referral Priority Routine Medications Medication SIG (Take, Route, Frequency, Duration) Notes Start Date End Date Status D3 Vitamin Active B-12 1000 MCG 1 tablet under the tongue and allow to dissolve Sublingual Once a day; Duration: 30 day(s) Active LORazepam 1 MG 1 tablet at bedtime as needed Orally Once a day Active LORazepam 1 MG 1 tablet at bedtime as needed Orally Once a day Not-Taking Cyclobenzaprine HCl 5 MG as directed Ora lly Twice a day Active Celecoxib 100 MG 1 capsule with food Orally Once a day; Duration: 30 day(s) Not-Taking CeleBREX 100 MG 1 capsule with food Orally Twice a day Active Omeprazole 20 MG 1 capsule 30 minutes before morning meal Orally Once a day; Duration: 30 day(s) Not-Taking Acid Controller Max St 20 MG 1 tablet at bedtime as needed Orally Once a day; Duration: 30 day(s) Not-Taking Nitro-Bid 2 % as [...] atherosclerosis of arteries of lower limbs (disorder) (72756169139719027 ) 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, bilateral legs (I70.203) Active confirmed Problem Acquired hallux valgus (35410988) Hallux valgus (acquired), left foot (M20.12) Active confirmed Problem Acquired hallux valgus (61010881) Hallux valgus (acquired), right foot (M20.11) Active confirmed Problem Raynaud's disease (962192064) Raynaud's disease without gangrene (I73.00) Active confirmed Vital Signs Blood pressure diastolic 80 mm Hg 03/18/2024 Height 5 ft 4 in in 03/18/2024 Blood pressure systolic 143 mm Hg 03/18/2024 Weight 122 lbs 03/18/2024 BMI 20.94 kg/m2 03/18/2024 Encounters Encounter Location Date Provider Diagnosis [facility] [address] [place] [address] 03/18/2024 Yosef Harvey Pain in left foot M79.672 ; Hallux valgus (acquired), left foot M20.12 ; Pain in right foot M79.671 and Hallux valgus (acquired), right foot M20.11 [facility] [place] [address] [place] [address] 05/09/2024 Yosef Harvey Assessments Encounter Date Diagnosis [...] X ray : Foot, right 3V 09/14/2022 [id number] SKIN LESIONS, 2 TO 4 09/15/19 23 Next Appt Details Provider Name:Radha Hi maryana, 09/03/2024 03:00:00 PM, [address] [place], [address], Insurance Providers Payer Name Payer Address Payer Phone Subscriber Number Group Number Insured Name Patient Relationship to Insured Coverage Start Date Coverage End Date BlueCare 65 Medicare Preferred [address] [place] [address] [id number] Yolis Brizuela Self - patient is the [...]
[2024-09-01] MEDS: Acetaminophen 325 MG TABLET 650 MG PO (12:43)
[2024-09-01] MEDS: amLODIPine Besylate 5 MG TABLET PO (14:41)
[2024-09-01 15:09] LABS: Troponin-I High Sensitivity 5.2 ng/L (<3.5-17.0)
[2024-09-01] MEDS: Labetalol HCL 100 MG/20 ML VIAL IVPUSH (16:17)
[2024-09-01 17:39] LABS: Appearance Urine Clear; Color Urine Yellow; Glucose Urine UA Negative (Negative); Leukocyte Esterase Urine Negative (Negative); Nitrite Urine Negative (Negative); PH 6.5 (5.0-9.0); UMIC TRIGGER UACC YES; Urine Blood Trace (Negative); Urine Ketones Negative (Negative); Urine Protein Negative (Neg-Trace)
[2024-09-01 17:43] LABS: Bacteria Urine None Seen (None Seen); Hyaline Casts Urine 0-2 /LPF (0-2); RBC Urine 0-2 /HPF (0-2); Squamous Epithelial Cell Urine 0-2 /HPF (0-2); WBC Urine 0-5 /HPF (0-5)
== END 2024-09-01 18:39 | disposition home or self-care (01) ==
PROVIDERS: Physician Assistant Medical; Emergency Provider Emergency Medicine; PCP Physician Assistant Surgical
DX: R03.0 Elevated blood-pressure reading, without diagnosis of hypertension (principal); R51.9 Headache, unspecified; M54.2 Cervicalgia; Z79.899 Other long term (current) drug therapy
CPT/HCPCS: 36415; 70450; 80053; 81001; 84484; 85025; 93005; 96374; 99284; 99285; J1920

== ENCOUNTER → 2024-09-01 11:18 | Outpatient (BNV) | payer MEDICARE, SELFPAY | PROVIDERS: Emergency Provider Emergency Medicine; PCP Physician Assistant Surgical; Visit Provider Internal Medicine Cardiovascular Disease | DX: I49.1 Atrial premature depolarization (principal); I49.3 Ventricular premature depolarization | CPT/HCPCS: 93010 ==

== ENCOUNTER → 2024-09-01 12:15 | Outpatient (BNV) | payer MEDICARE, SELFPAY | PROVIDERS: Emergency Provider Emergency Medicine; PCP Physician Assistant Surgical; Visit Provider Radiology Diagnostic Radiology | DX: I10 Essential (primary) hypertension (principal) | CPT/HCPCS: 70450 ==

== ENCOUNTER 2024-10-06 13:25 | Outpatient (REF) | payer MEDICARE, SELFPAY ==
--- OUTSIDE RECORDS SUMMARY | 2024-10-06 13:42 | XMS_ITS | Patient Health Record ---
[facility] Address [address] [place] [address] Care Team Providers Care Cco Name Role Phone Pro Donahue Primary Care Provider Yosef Bejarano Unavailable [phone] Radha Reynoso Unavailable [phone] Allergies Allergen (clinical drug ingredient) Drug/Non Drug [...] 79.672) Diagnosis 5 Unspecified atherosc lerosis of three affiliated arteries of extremities, bilateral legs (I70.203) Diagnosis 6 Metatarsalgia, right foot (M77.41) Diagnosis 7 Raynaud's disease wi thout gangrene (I73.00) Referring Provider First Name Kobi Referring Provider Last Name Soar [facility] Referred Provider Yosef Harvey Referred Address [address] [facility],[place],[address], Referred Provider Specialty Podiatry Referral Priority Routine Medications Medication SIG (Take, Route, Frequency, Duration) Notes Start Date End Date Status Famotidine 20 MG as directed Orally Three times a day Not-Taking Nitro-Bid 2 % as directed Transdermal on toe Not-Taking amLODIPine Benzoate Active Nitro-Bid 2 % as directed Transdermal Not-Taking D3 Vitamin Active amLODIPine Besylate 5 MG Oral; Duration: 30 Days Active B Complex - as directed Orally Not-Taking Cholecalciferol 25 MCG (1000 UT) 2 tablets Orally Daily Not-T aking CeleBREX 100 MG 1 capsule with food Orally Twice a day Active Acid Controller Max St 20 MG 1 tablet at bedtime as needed Orally Once a day; Duration: 30 day(s) Not-Taking Cyclobenzaprine HCl 5 MG as directed Ora lly Twice a day Active Omeprazole 20 MG 1 capsule 30 minutes before morning meal Orally Once a day; Duration: 30 day(s) Not-Taking LORazepam 1 MG 1 tablet at bedtime as needed Orally Once a day Active Celecoxib 100 MG 1 capsule with food Orally Once a day; Duration: 30 day(s) Not-Taking B-12 1000 MCG 1 tablet under the tongue and allow to dissolve Sublingual Once a day; Duration: 30 day(s) Active LORazepam 1 MG 1 tablet at bedtime as needed Orally Once a day Not-Taking Social History Tobacco Use: Social History [...] Problem Status W/U Status Risk Notes Problem Acquired hammer toe of left foot ([id number] 103) Other hammer toe(s) (acquired), left foot (M20.42) Active confirmed Problem Plantar wart (82859703) Plantar wart (B07.0) Active confirmed Problem Raynaud's disease (401048122) Raynaud's disease without gangrene (I73.00) Active confirmed Vital Signs Blood pressure diastolic 75 mm Hg 09/03/2024 Height 5 ft 4 in in 09/03/2024 Blood pressure systolic 140 mm Hg 09/03/2024 Weight 122 lbs 09/03/2024 BMI 20.94 kg/m2 09/03/2024 Procedures Procedure Date Ordered Date Performed Result Body Sit e 40265-Umbm Destruction, 1-14 09/03/2024 N/A Encounters Encounter Location Date Provider Diagnosis [facility] [place] [address] 03/18/2024 Yosef Harvey Pain in left foot M7 9.672 ; Hallux valgus (acquired), left foot M20.12 ; Pain in right foot M79.671 and Hallux valgus (acquired), right foot M20.[address] [address] 09/03/2024 Radha Reynoso Right foot pain M79.671 ; Plantar wart B07.0 ; Pain in right toe(s) M79.674 ; Other hammer toe(s) (acquired), right foot M20.41 ; Pain in left toe(s) M79.675 ; Other hammer toe(s) (acquired), left foot M20.42 ; Subluxation of metatarsophalangeal joint of toe, initial encounter S93.149A and Raynaud's disease without gangrene I73.[address] [address] 05/09/2024 Yosef Harvey Assessments Encounter Date Diagnosis (ICD Code) Assessment Notes Treatment Notes Treatment Clinical Notes Section Notes 03/18/2024 Pain in left foot (ICD-10 - M79.672) 03/18/2024 Hallux valgus (acquired), left foot (ICD-10 - M20.12) 09/03/2024 Right foot pain (ICD -10 - M79.671) 09/03/2024 Plantar wart (ICD-10 - B07.0) 03/18/2024 Pain in right foot (ICD-10 - M79.671) 09/03/2024 Pain in right toe(s) (ICD-10 - M79.674) 03/18/2024 Hallux valgus (acquired), right foot (ICD-10 - M20.11) Application of an aperature pad right foot to alleviate pressure 09/03/2024 Other hammer toe(s) (acquired), right foot (ICD-10 - M20.41) 09/03/2024 Pain in left toe(s) (ICD-10 - M79.675) 09/03/2024 Other hammer toe(s) (acquired), left foot (ICD-10 - M20.42) 09/03/2024 Subluxation of metatarsophalangeal joint of toe, initial encounter (ICD-10 - S93.149A) 09/03/2024 Raynaud's disease without gangrene (ICD-10 - I73.00) Plan Of Treatment Pending Test Test Name Order Date X ray : Foot, left 3V 09/14/2022 X ray : Foot, right 3V 09/14/2022 [id number] Destruction, 1-14 09/03/2024 01976-[id number] SKIN LESIONS, 2 TO 4 09/15/19 23 Insurance Providers Payer Name Payer Address Payer Phone Subscriber Number Group Number Insured Name Patient Relationship to Insured Coverage Start Date Coverage End Date BlueCare 65 Medicare Preferred [address] [place] [address] [phone] [id number] Yolis Brizuela Self - patient is the [...]
--- OUTSIDE RECORDS SUMMARY | 2024-10-06 13:42 | XMS_ITS | Clinical Summary ---
Author Organization [facility] Address Formerly [facility] [email or web address] [address] [address] Phone Care Team Providers Care Proposal Consultant Name Role Phone Lico Olivares MD Unavailable [phone] Pro Donahue PA-C Primary Care Provider [phone] Clayton Tucker MD Unavailable Allergies Active Allergy Reactions Criticality Noted Date Comments Cephalexin Nausea and/or Vomiting 07/29/2024 Clarithromycin Nausea and/or Vomiting Codeine Nausea and/or Vomiting 12/30/2019 Medications b complex vitamins capsule Take 1 capsule by mouth daily. Active cholecalciferol , vitamin D3, 1,000 unit capsule 2 tabs Orally daily Active omeprazole (PRILOSEC) 20 mg TbEC Take 20 mg by mouth daily before breakfast. Active famotidine (PEPCID) 20 MG tablet Take 1 tablet (20 mg total) by mouth 2 (two) times a day. 60 tablet 2 01/17/20 23 Active Additional Information Patient taking differently:20 mg OralDaily, Reported on 09/30/2024 celecoxib (CELEBREX) 100 MG capsule Take 1 capsule (100 mg total) by mouth 2 (two) times a day. 180 capsule 3 09/27/19 24 Active cyclobenzaprine (FLEXERIL) 5 MG tabletIndicatio ns:Scleroderma TAKE 1 TABLET BY MOUTH TWICE A DAY NEEDED 20 tablet 1 03/19/19 25 Active LORazepam (ATIVAN) 1 MG tabletIndicatio ns:Anxiety Take 0.5-1 tablets (0.5-1 mg total) by mouth nightly at bedtime as needed for anxiety. 60 tablet 07/12/19 25 Active amLODIPine (NORVASC) 10 MG tabletIndicatio ns:Primary hypertension TAKE 1 TABLET BY MOUTH EVERY DAY 90 tablet 3 09/27/19 25 Active cyanocobalamin, vitamin B-12, (VITAMIN B-12 ORAL) Take 250 mcg by mouth daily. Active amLODIPine (NORVASC) 10 MG tabletIndicatio ns:Primary hypertension Take 1 tablet (10 mg total) by mouth daily. 30 tablet 09/05/19 25 2024 Discontinued cyanocobalamin, vitamin B-12, 1,[address]ual tablet [address] 1,000 mcg under the tongue daily. 2024 Discontinued(N o longer taking) benzonatate (TESSALON) 100 MG capsule Take 100 mg by mouth 3 (three) times a day. Up to four times a day 2024 Discontinued(N o longer taking) benzonatate (TESSALON) 100 MG capsuleIndicati ons:Acute cough Take 1 capsule (100 mg total) by mouth 3 (three) times a day as needed for cough. 15 capsule 09/18/19 25 2024 azithromycin (ZITHROMAX Z-BHARATH) 250 MG tabletIndicatio ns:Lower respiratory infection Take 2 tablets on day 1, and take 1 tablet on days 2 through 5 for a total of 5 days. 6 tablet 10/01/19 25 2024 Active Problems Problem Noted Date Diagnosed Date Lower respiratory infection 09/30/2024 Assessment & Plan (09/30/2024 2:48 PM EDT): Begin azithromycin today, for lower respiratory infection following likely viral respiratory infection. Await CXR. Additional antimicrobials as indicated (she has tolerated amoxicillin in the past). Consider labs, namely CBC/diff if condition not improving. Seek care urgently for any new or worseing symptoms while awaiting results. Dyspnea on exertion 09/30/2024 Assessment & Plan (09/30/2024 10:18 PM EDT): Awaiting Echo. EKG without significant changes since 09/01 hospitalization. Follow up emergently if any worsening symptoms. Benign essential hypertension 09/17/2024 Assessment & Plan (09/17/2024 5:09 PM EDT): Control is much better now on the amlodipine 10 mg daily, with good in office and at home blood pressure readings. At this point would recommend maintaining this dosage. We do have a follow-up on 09/30/2024 to further discuss this. Hypertensive urgency 09/04/2024 Assessment & Plan (09/04/2024 4:36 PM EDT): Patient presented to [facility] ED on 09/01/2024 for hypertensive urgency with a blood pressure in the 200s over 130s. Ultimately, full workup was negative and patient was discharged home on amlodipine 5 mg daily which she has been taking. She has been taking her blood pressure at home which has fluctuated but ultimately averaging between 150-190 systolic. On examination today she was noted to have an irregular rhythm so an EKG was obtained which showed sinus rhythm with multiple PVCs. Discussed this with the patient and she notes understanding. No evidence of a flutter/A-fib. In regards to why she had hypertensive urgency when the week prior her blood pressure was in normal limits, I cannot answer to this. I will start to obtain a workup regarding this including obtaining an echocardiogram to assess the anatomy of the heart. I do suspect that it could be related to her scleroderma but cannot confirm that at this time. That being said, we will continue to see her blood pressure and increase her amlodipine to 10 mg daily and follow-up in 4 weeks. Patient is advised to continue taking her blood pressure at home. Red flag symptoms including chest pain, shortness of breath, headache, dizziness were discussed, if those were to happen I advised patient to call 911. Callus 08/27/2024 Assessment & Plan (08/27/2024 5:33 PM EDT): Patient with a history of scleroderma who is noted a calluses on her feet who has seen a large sheetfed press operator in the past who is scraped them down. She is interested in going back to the large sheetfed press operator. I have placed a referral to [place] [facility]. Weight loss 08/27/2024 Assessment & Plan (08/27/2024 5:37 PM EDT): The patient has had a weight loss over the course of the last year dropping from 120 209. Patient mentions that it is somewhat intentional however her who is sitting by her states that it is unintentional. In the past she has undergone a mammogram however she states that she will not undergo another one as she was misdiagnosed with breast cancer. She states that she will not undergo a colonoscopy. She does have a family history of colonoscopy in her mom. I did explain the concern about her unintentional weight loss that this could be an underlying malignancy however she is hesitant about undergoing a further testing. Calcinosis 07/29/2024 Assessment & Plan (07/29/2024 1:45 PM EDT): Patient with a history of scleroderma who has had ulcers including 1 on her left pinky. Patient has a development of 1 on her right pinky but most notable a sore at the distal end of her right middle finger which has been there for months. Patient notes tenderness to palpation. Patient has tried antibiotics, Epsom salt baths, bacitracin, Vaseline with no improvement in her symptoms. On further investigation it appears that she could have a calcium deposit which is not uncommon in patients with scleroderma. I did discuss other options to include calcium channel blockers, bisphosphonates, cortisone., and/or surgery. The medications such as calcium channel blockers and bisphosphonates and cortisone help with the inflammation whereas calcium channel blockers and bisphosphonates also help with the accumulation of calcium. Given these options the patient stated that she would be willing to try the corticosteroids and therefore a referral to Dr. 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 Constipation 06/19/2024 Acute cough 04/07/2024 Assessment & Plan (09/17/2024 5:09 PM EDT): She notes 4 days of an acute dry cough which was preceded by 2 days of pharyngitis which has resolved. She notes that the dry cough is reminiscent of when she had pneumonia in April. She is afebrile, hemodynamically stable. Lungs were clear to auscultation bilaterally. Suspect a viral illness. Flu/COVID/RSV swab obtained in the office today, negative. Discussed doing a pharyngeal swab for strep, patient declined at this time. Discussed symptomatic treatment, refill of Tessalon Perles sent to pharmacy as this has been beneficial for the patient. Will also obtain a chest x-ray to rule out pneumonia. Assessment & Plan (04/07/2024 12:55 PM EST): Patient started with a nonproductive cough about 9 days ago which has continued. She denies any fever, body aches, sinus pressure and nasal congestion. She does mention some difficulty with breathing, headache and fatigue. Concern for pneumonia given her symptoms and duration. Cepheid multiplex negative Start biaxin 500mg bid Chest [facility] Acquired hallux valgus 01/16/2023 Raynaud's disease without gangrene 01/16/2023 01/16/2023 Mammogram declined 01/10/2022 Colonoscopy refused 01/10/2022 Ischemic ulcer of toe of rig ht foot, limited to breakdown of skin 12/30/2019 Mixed hyperlipidemia 12/24/2018 Assessment & Plan (08/27/2024 5:34 PM EDT): Patient with most recent labs showing an LDL of 175 and an HDL of 45 and triglycerides of 145. Patient is currently not on any medication. She eats well however mentions that she has had an unintentional weight loss over the course the last year. She exercises as well. She is reluctant on taking medications and therefore I encouraged her to decrease any cheese, eggs, butter to help reduce her LDL. We will repeat her lipid panel at her next office visit in February. Assessment & Plan (11/21/2023 2:35 PM EDT): Patient noted to have elevated high cholesterol on previous lipid panels. Patient is due for a physical coming up and therefore we will recheck. She is not currently on any medications. Thyroid nodule 08/01/2018 Anxiety 12/18/2017 Assessment & Plan (11/21/2023 2:36 PM EDT): Continue Ativan 0.5 mg 1 mg p.o. nightly as needed Controlled substance agreement signed Depression 12/18/2017 Gastroesophageal reflux disease without esophagi tis 12/18/2017 Assessment & Plan (11/21/2023 2:37 PM EDT): Continue omeprazole 20 mg p.o. daily and famotidine 20 mg p.o. 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 She is also on Celebrex 100 mg p.o. twice daily for joint pains. And Flexeril as well as needed for muscle spasms. [facility] rheumatology Dr. Hawkins referral Resolved Problems Problem Noted Date Diagnosed Date Resolved Date Cellulitis of finger of right hand 06/19/2024 08/27/2024 Chronic fatigue 08/01/2018 08/27/2024 Encounters Date Type Department Care Team Description 10/03/2024 Telephone [facility] Internal Medicine [address] [facility] [place] [place] [address] Pro Donahue PA-C Cough 09/30/2024 1:30 PM EDT Office Visit [facility] [address] [facility] [place], [facility] [place] [address] Cristina Cameron CNP Lower respiratory infection (Primary Dx); Dyspnea on exertion 09/30/2024 Telephone [facility] Internal Medicine [address] [facility] [place] [place] [address] Cristina Cameron CNP Results 09/29/2024 Documentation [facility] Internal Medicine [address] [facility] [place], [facility] [place] [address] Pro Donahue PA-C 09/29/2024 Telephone [facility] Internal Medicine [address] [facility] [place] [place] [address] Pro Donahue PA-C [email or web address] 09/26/2024 Refill [facility] Medicine [address] [place] [address] Laney Dill PA-C Med Change Request 09/18/2024 Telephone [facility] Internal [facility] [address] [place] [address] Pro Donahue PA-C Results 09/17/2024 4:00 PM EDT Office Visit [facility] Internal [facility] [address] [place] [address] Laney Dill PA-C Acute cough (Primary Dx); Benign essential hypertension 09/17/2024 Telephone [facility] Internal [facility] [address] [place] [address] Laney Dill PA-C Test Results 09/17/2024 Orders Only [facility] Internal [facility] [address] [place] [address] ProviderFay MD 09/16/2024 Telephone [facility] [address] [place] [address] Pro Donahue PA-C Sore Throat (Cough/); Cough 09/08/2024 Orders Only [facility] Internal [facility] [address] [place] [address] ProviderFay MD 09/04/2024 2:40 PM EDT Office Visit [facility] Internal [facility] [address] [place] [address] Laney Dill PA-C Primary hypertension (Primary Dx); Hypertensive urgency 09/04/2024 Telephone [facility] Internal [facility] [address] [place] [address] Pro Donahue PA-C echo order 09/03/2024 Telephone [facility] Internal [facility] [address] [place] [address] Pro Donahue PA-C [facility] 09/03/2024 Orders Only [facility] [address] [place] [address] Fay Crawford MD 09/02/2024 Orders Only [facility] [address] [place] [address] ProviderFay MD 09/01/2024 Telephone [facility] [address] [place] [address] Pro Donahue PA-C Hypertension 08/27/2024 1:00 PM EDT Office Visit [facility] [address] [place] [address] Pro Donahue PA-C Callus (Primary Dx); Mixed hyperlipidemia; Weight loss 08/19/2024 Orders Only [facility] Internal [facility] [address] [place] [address] ProviderFay MD 08/04/2024 12:02 PM EDT - 08/04/2024 11:59 PM EDT Hospital Encounter [address] [address] Nan Steele MD Discharge Disposition: Home or Self Care 08/04/2024 12:00 PM EDT Office Visit [facility] [address] [place] [address] Nan Steele MD Pain (Primary Dx); Scleroderma; Cutaneous calcification 07/31/[address] [facility] [address] [place] [address] Marilyn Smith PA-C Dental Pain (After hours call) 07/29/2024 1:00 PM EDT Office Visit [facility] Internal [facility] [address] [place] [address] Pro Donahue PA-C Calcinosis (Primary Dx) 07/14/2024 Telephone [facility] [address] [facility] [place] [id number] Pro Donahue PA-C cellulitis of finger 07/10/2024 Refill [facility] [address] [facility] [place] [address] Pro Donahue PA-C Medication Refill from Last 3 Months Immunizations Immunization Administration Dates Next Due COVID-19 (Pre-12/25) Moderna Vaccine, mRNA, PF 0 07/14/2020,06/16/2020 Family History Medical History Relation Comments Cancer Daughter 1 No Known Problems Daughter 2 No Known Problems Daughter 3 CV disease Father CV disease Mother Colon cancer Mother Cancer Sibling Diabetes Son Osteoarthritis Neg Hx Rheum arthritis Neg Hx Relation Status Comments Daughter 1 Alive Daughter 2 Alive Daughter 3 Alive Father (Age 56) Mother Paternal Grandfather (Age 56) Sibling Alive Son Alive Social History Tobacco Use Types Packs/Day Years Used Date Smoking Tobacco: Never Smokeless Tobacco: Never Alcohol Use Standard Drinks/Week Comments No 0 (1 standard drink = 0.6 oz pur e alcohol) Education Answer Date Recorded Are you interested in more education? Not on kirt e 06/30/2022 Are you concerned about learning? Not on file 06/30/2022 No 06/30/2022 No 06/30/2022 Digital Access Answer Date Recorded No 07/30/2022 No 07/30/2022 Reliable internet access at home? Not on file 07/30/2022 Device with a working camera? Not on file Intimate Partner Violence Answer Date R ecorded Denied Basic Needs Not on file 02/24/2024 In the past 12 months have y ou been in a relationship with a person who hurts, threatens, or tries to control you? No 02/24/2024 Worried food would run out Not on file 02/23 In the past 12 months have y ou been in a relationship with a person who hurts, threatens, or tries to control you? No 02/24/2024 Comments Unknown Sex and Gender Information Value Date Recorded Sex Assigned at Female 05/28/2020 6:44 PM EDT Legal Sex Female 1:30 PM EDT Gender Identity Female 05/28/2020 6:44 PM EDT Sexual Orientation Not on file Occupation Industry Job Start Date Job End Date Retired Not on file Not on file Not on file Last Filed Vital Signs Vital Sign Reading Time Taken Comments Blood Pressure 128/64 09/30/2024 1:14 PM EDT Pulse 60 09/30/2024 1:14 PM EDT Temperature 35.7 C (96.2 F) 09/30/2024 1:14 PM EDT Respiratory Rate 22 09/30/2024 1:14 PM EDT Oxygen Saturation 96% 09/30/2024 1:14 PM EDT Inhaled Oxygen Concentration - - Weight 51 kg (112 lb 6.4 oz) 09/30/2024 1:14 PM EDT Height 162.6 cm (5' 4.02 ) 09/30/2024 1:14 PM ED T Body Mass Index 19.28 09/30/2024 1:14 PM EDT Plan of Treatment Upcoming Encounters Date Type Department Care Team (Late st Contact Info) Description 10/08/2024 2:30 PM EDT Office Visit [facility] Internal Medicine [address] [place] [address] Kobi Esteves MD [address] [place] [address] [email or web address] 03/02/2025 2:40 PM EST Office Visit [facility] Internal Medicine [address] [place] [address] Pro Donahue PA-C [address] [place], [place] [id number] [email or web address] Health Maintenance Due Date Last Done Comments FOLLOW UP BONE DENSITY TESTING 07/10/2014 07/10/2012 COVID-19 VACCINE ( season) 2023 01/17/2021, 07/14/2020, 06/16/2020 DEPRESSION SCREENING 02/24/2025 02/25/2024, 12/30/19 20 BLOOD PRESSURE 04/02/2025 09/30/2024 RSV VACCINE (1 - 1-dose 75+ series) 08/19/2025 Postponed from 2019 (Patient Declines / Guardian Declines) ZOSTER VACCINES (1 of 2) 09/17/2025 Pos tponed from 1994 (Patient Declines / Guardian Declines) LIPID PANEL 08/19/2029 08/19/2024, 04/2020, 01/29/2018, Additional history exists OSTEOPOROSIS SCREENING INITIAL (ONE-TIME) Completed 07/10/2012 SMOKING STATUS SCREENING (Once After 26 Yrs) Completed 09/30/2024 HEPATITIS A VACCINES Aged Out No long er eligible based on patient's age to complete this topic HIB VACCINES Aged Out No longer eligi ble based on patient's age to complete this topic MENINGOCOCCAL VACCINES (ACWY) Aged Out No longer eligible based on patient's age to complete this topic MENINGOCOCCAL VACCINES (B) Aged Out N o longer eligible based on patient's age to complete this topic Medical Devices Not on file Procedures Procedure Name Priority Date/Time Associated Diagnosis Comments XR CHEST Routine 09/30/2024 2:16 PM EDT Dyspnea on exertion OUTSIDE XR CHEST REPORT ONLY Routine 09/17/2024 5:13 PM EDT XR CHEST Routine 09/17/2024 4:21 PM EDT Acute cough POCT COVID-19 RT-PCR/INFLUENZA A & B/RSV CEPHEID Routine 09/17/2024 4:21 PM EDT OUTSIDE IMAGING Routine 09/04/2024 12:09 PM EDT OUTSIDE IMAGING Routine 09/01/2024 3:21 PM EDT OUTSIDE IMAGING Routine 09/01/2024 11:28 AM EDT OUTSIDE POTASSIUM LEVEL Routine 09/01/2024 OUTSIDE SERUM CREATININE LEVEL Routine 09/01/2024 COMPREHENSIVE METABOLIC PANEL Routine 08/19/2024 11:34 AM EDT GLUCOSE Routine 08/19/2024 11:34 AM EDT LIPID PANEL Routine 08/19/2024 11:34 AM EDT TSH Routine 08/19/2024 11:34 AM EDT T4, TOTAL Routine 08/19/2024 11:34 AM EDT XR HAND 3 OR MORE VIEWS (RIGHT) Routine 08/04/2024 12:07 PM EDT Pain OUTSIDE BONE DENSITY SCREENING Routine 07/10/2012 from Last 3 Months or Most Recently Relevant to Health Maintenance Results * Outside XR??Chest Report Only (09/17/2024 5:13 PM EDT) Historical Provider MD ARTEAGA XR CHEST Final Res ult * POCT COVID-19 RT-PCR/Influenza A & B/RSV (Cepheid) (09/17/2024 4:21 PM EDT) [facility] RSV PCR Negative Negative [facility] SARS-CoV-2 (COVID-19) Negative Negative [facility] Influenza A PCR Negative Negative [facility] Influenza B PCR Negative Negative [facility] 09/17/2024 4:21 PM EDT 09/17/2024 5:03 PM EDT Laney Dill PA-C POINT OF CARE TEST ORDERABLE S Final Result Performing Organization Address City/State/[facility] Co de Phone Number [facility] [address] [place] [address], [facility] [phone] * Outside Imaging Report Only (09/04/2024 12:09 PM EDT) Historical Provider MD ARTEAGA XR CHEST Final Res ult * Outside Imaging Report Only (09/01/2024 3:21 PM EDT) Historical Provider MD ARTEAGA XR CHEST Final Res ult * Outside Imaging Report Only (09/01/2024 11:28 AM EDT) Result [facility] Provider IMG XR CHEST Final Res ult * Outside Potassium Level (09/01/2024) Potassium level - External 4.1 3.4 - 5.0 mmol/L Result [facility] MD LAB BLOOD ORDERABLES Tammy l Result * Outside Serum Creatinine Level (09/01/2024) Creatinine, serum - External 1.04 0.8 - 1.3 mg/dL Result [facility] LAB BLOOD ORDERABLES Tammy l Result * Comprehensive metabolic panel (08/19/2024 11:34 AM EDT) Sodium - External Potassium - External 4.4 Chloride - External CO2 - External BUN - External Creatinine - External 1.23 Glucose - External 92 Albumin - External Protein - External Calcium - External Alkaline Phosphatase - External Bilirubin, total - External AST - External ALT - External <6 Globulin - External eGFR - External Anion Gap - External Result [facility] LAB BLOOD ORDERABLES Edit ed Result - Final * TSH (08/19/2024 11:34 AM EDT) TSH - External 0.26 Result [facility] LAB BLOOD ORDERABLES Edit ed Result - Final * T4, total (08/19/2024 11:34 AM EDT) Result [facility] LAB BLOOD ORDERABLES Tammy l Result * Glucose (08/19/2024 11:34 AM EDT) Result [facility] LAB BLOOD ORDERABLES Tammy l Result * Lipid panel (08/19/2024 11:34 AM EDT) HDL - External 45 Cholesterol, Total - External 250 Triglycerides - External 145 LDL, calculated - External 176 Cardiac Risk Ratio - External Non-HDL Cholesterol - External Historical Provider LAB BLOOD ORDERABLES Edit ed Result - Final * XR HAND 3 OR MORE VIEWS (RIGHT) (08/04/2024 12:07 PM EDT) Narrative SYSTEMGENERATED, DOCUMENTATION - 08/04/2024 12:07 PM EDT This image report has been auto-finalized and has not been read by a Radiologist. Interpretation has been included in the provider encounter note for this date of service. Nan Steele MD IMG XR UPPER EXTREMITY Final Result * OUTSIDE BONE DENSITY SCREENING (07/10/2012) BONE DENSITY SCREENING - EXTERNAL osteopenia, 2 yr recall Historical Provider HEALTH MAINTENANCE Final Result from Last 3 Months or Most Recently Relevant to Health Maintenance Insurance [place] [address] [place] [address] MEDICARE HMO BLUE REPLACEMENT [facility] MEDICARE HMO BLUE [place]PLAC[place] [address] [place] [address] MEDICARE HMO BLUE REPLACEMENT Member Subscriber Plan / Payer (Ef fective 2009-Present) Name:Yolis Brizuela Relation to Subscriber:Self Name:Yolis Brizuela Payer ID:[id number] (NAIC) Type:Medicare Address: [facility] [id number] [place], [place] [facility] MEDICARE HMO BLUE [place]PL[place] [address] [place] [address] MEDICARE HMO BLUE REPLACEMENT Member Subscriber Plan / Payer (Ef fective 2009-Present) Name:Yolis Brizuela Relation to Subscriber:Self Name:Yolis Brizuela Payer ID:[id number] (NAIC) Type:Medicare Address: [facility] [id number] [place], [place] [facility] MEDICARE HMO BLUE REPLACEMENT Member Subscriber Plan / Payer (Ef fective 2009-Present) Name:Yolis Brizuela Relation to Subscriber:Self Name:Yolis Brizuela Payer ID:[id number] (NAIC) Type:Medicare Address: [facility] [id number] [place] [id number] [place] BLUE RE[place]ACEMENT Care Teams Proposal Consultant Relationship Specialty Start Date End Date Pro Donahue PA-C [address] [place] [address] [email or web address] PCP - General Physician Marking Machine Tender 09/24/23 Lico Olivares MD [address] [place] [address] [email or web address] Insurance Assigned Provider Internal Medicine 07/05/18 Clayton Tucker MD [address] [place] [id number] Rheumatology 02/25/24 Additional Source Comments The information contained in this document represents components of the legal health record. It is not the complete legal health record.[facility]
[2024-10-06 16:19] LABS: MANUAL DIFF FLAG NO
[2024-10-06 16:23] LABS: Hematocrit 35.2 % (37.0-47.0); Hemoglobin 11.5 g/dl (12.0-16.0); Imm Gran Abs Auto 0.03 X10*3/uL (0.00-0.03); Imm Gran Pct Auto 0.3 % (0.0-0.4); Lymphocytes Absolute Auto 1.8 X10*3/uL (1.2-4.9); Mean Corpuscular HGB Conc 32.7 g/dl (31.0-35.0); Mean Corpuscular Hemoglobin 29.6 pg (27.0-33.0); Mean Corpuscular Volume 90.7 fL (80.0-98.0); NRBC Abs Auto 0.000 X10*3/uL (0.0-0.012); NRBC Pct Auto 0.0 /100WBC (0.0-0.2); Platelet Count 264 X10*3/uL (160-400); Red Blood Count 3.88 X10*6/uL (4.20-5.50); White Blood Count 8.9 X10*3/uL (4.8-10.8)
== END 2024-10-06 13:26 | disposition home or self-care (01) ==
LOC: HO.HMGCLDS 13:25
PROVIDERS: PCP Physician Assistant Surgical; Visit Provider Registered Nurse
DX: R06.09 Other forms of dyspnea (principal)
CPT/HCPCS: 36415; 85025

== ENCOUNTER → 2024-10-31 12:39 | Outpatient (REF) | payer MEDICARE, SELFPAY ==
--- NOTE | 2024-10-31 12:43 | CA_ITS ---
Transthoracic Echocardiogram Patient (Last, First, Middle): Yolis Brizuela C Gender: Female Date of : 1945 Age: 79 Procedure Date: 10/31/2024 Procedure Type: Transthoracic Echocardiogram Location: OP Height: 162.56 cm Weight: 49.9 kg BSA: 1.52 m2 Heart Rate: 74 bpm BP: 126 / 56 mmHg Special Education Secretary: TO Referring MD: Laney LIVINGSTON Symptoms: HTN Study Quality: Technically Difficult ECG Rhythm: Sinus Conclusions: - The left ventricular systolic function is normal. The visually estimated ejection fraction is between 55-60%. - No obvious valvular pathology seen on this study. Findings Procedure Information The quality of the study was technically difficult. The study quality is limited by the patients inability to tolerate the test and patients body habitus. Left Ventricle Normal left ventricular cavity size. There is normal left ventricular wall thickness. The left ventricular systolic function is normal. The visually estimated ejection fraction is between 55-60%. There is no evidence of regional wall motion abnormalities. Diastolic function is normal for age. Right Ventricle The right ventricle was not well visualized. Normal right ventricular cavity size. Atria The left atrium is normal in size. The right atrium is normal in size. Aortic Valve There is a normal trileaflet aortic valve. There is no aortic valve stenosis. There is no aortic valve regurgitation. Mitral Valve The mitral valve appears normal. There is trace mitral valve regurgitation. There is no mitral valve stenosis. Pulmonic Valve The pulmonic valve is likely normal. Tricuspid Valve There is trace tricuspid valve regurgitation. There is no evidence of pulmonary hypertension. Great Vessels The asc aorta is normal in size. Venous The inferior vena cava is normal in size and collapses greater than 50% with inspiration. Pericardium/Pleural There is no evidence of pericardial effusion. Prior Study Comparison No significant change compared to prior study dated: 09/13/2018. Recommendations, Care & Conclusions No obvious valvular pathology seen on this study. Measurements 2D Linear Measurements IVSd: 0.74 0.6-0.9/0.6-1.0 cm LVIDd: 4.11 3.9-5.3/4.2-5.9 cm LVIDd Index: 2.70 2.4-3.2/2.2-3.1 cm/m2 LVIDs: 2.88 2.0-3.6 cm LVPWd: 0.64 0.7-1.1 cm LA Diam: 2.30 2.7-3.8/3.0-4.0 cm LAIDs Index: 1.51 1.5-2.3 cm/m2 LV Mass: 99.98 67-162/88-224 g LV Mass Index: 65.78 43-95/49-115 g/m2 LVOT Diam: 2.10 3.0+(-)1.3 cm 2D Systolic Function EF 4C: 60.50 >55% Mitral Valve MV Pk E: 0.82 MV PK A: 1.11 MV Decel Time: 223.00 E/A: 0.70 E'Lateral: 7.62 E'Medial: 4.90 E/E' Med: 16.70 E/E' Lat: 10.70 PHT: 65.00 MVA PHT: 3.38 Decel Gilliam: 3.67 Aortic Valve AoV Pk Sd: 1.13 AoV Mn Sd: 0.81 AoV VTI: 0.25 AoV Pk Grad: 5.00 Aov Mn Grad: 3.00 MARY Cont.VTI: 2.28 LVOT LVOT Pk Sd: 0.69 LVOT Mn Sd: 0.52 LVOT VTI: 0.16 LVOT Pk Grad: 2.00 LVOT Mn Grad: 1.00 LVOT Diam: 2.10 LVOT Area: 3.46 Diastolic Function MV Pk E: 0.82 MV Pk A: 1.11 E/A: 0.70 E'Medial: 4.90 E/E' Med: 16.70 E' Laterial: 7.62 E/E' Lat: 10.70 Tricuspid Valve RA Press: 3.00 Great Vessels Aorta Sinus of Valsalva: 3.10 2.0-3.5 cm Ao Asc: 3.10 2.1-3.4 cm Updated in Other Vendor System with Status of Final Jorge Aj MD electronically signed on 11/01/2024 11:54:50 AM with status of Final
--- OUTSIDE RECORDS SUMMARY | 2024-10-31 13:00 | XMS_ITS | Encounter Summary ---
Author Organization [facility] Address [address] [place] [address] Phone Care Team Providers Care Spa Associate Name Role Phone Lico Olivares MD Unavailable [phone] Pro Donahue PA-C Primary Care Provider [phone] Clayton Tucker MD Unavailable Encounter Details Date Type Department Care Team (Late st Contact Info) Description 10/07/2024 Orders Only [facility] [place] Internal Medicine [address] [place] [address] Provider, MD Fay [address] [place] [address] Social History Tobacco Use Types Packs/Day Years [...] file Not on file Not on file documented as of this encounter Plan of Treatment Upcoming Encounters Date Type Department Care Team (Late st Contact Info) Description 03/02/2025 2:40 PM EST Office Visit [facility] Internal Medicine [address] [place] [address] Pro Donahue PA-C [address] [place] [address] [email or web address] documented as of this encounter Procedures Procedure Name Priority Date/Time Associated Diagnosis Comments CBC AND DIFFERENTIAL Routine 10/06/2024 11:23 AM EDT documented in this encounter Results * CBC and differential (10/06/2024 11:23 AM EDT) Blood us Historical Provider LAB BLOOD ORDERABLES Tammy l Result documented in this encounter Visit Diagnoses Not on filedocumented in this encounter Additional Health Concerns Assessment Noted Time PHQ-2 Depression Total Score: 0 02/25/20 24 2:22 PM EST documented as of this encounter Care Teams Spa Associate Relationship Specialty Start Date End Date Pro Donahue PA-C [address] [place] [address] [email or web address] PCP - General Physician Oenologist 09/24/23 Lico Olivares MD [address] [place] [address] [email or web address] Insurance Assigned Provider Internal Medicine 07/05/18 Clayton Tucker MD [facility] [place] [address] Rheumatology 02/25/24 documented as of this encounter Additional Source Comments The information contained in this document represents components of the legal health record. It is not the complete legal health record.[facility]
--- OUTSIDE RECORDS SUMMARY | 2024-10-31 13:02 | XMS_ITS | Patient Health Record ---
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 [facility],[place], [place],[address], Referred Provider Specialty Podiatry Referral Priority Routine [...] Problem Acquired hammer toe of left foot (5877467648968 103) Other hammer toe(s) (acquired), left foot (M20.42) Active confirmed Problem Plantar wart (65019966) Plantar wart (B07.0) Active confirmed Problem Raynaud's disease (183242459) Raynaud's disease without gangrene (I73.00) Active confirmed Vital Signs Blood pressure diastolic 75 mm Hg 09/03/2024 Height 5 ft 4 in in 09/03/2024 Blood pressure systolic 140 mm Hg 09/03/2024 Weight 122 lbs 09/03/2024 BMI 20.94 kg/m2 09/03/2024 Procedures Procedure Date Ordered Date Performed Result Body Sit e 81512-Gkew Destruction, 1-14 09/03/2024 N/A Encounters Encounter Location Date Provider Diagnosis [facility] [place] [address] 03/18/2024 Yosef Harvey Pain in left foot M7 9.672 ; Hallux valgus (acquired), left foot M20.12 ; Pain in right foot M79.671 and Hallux valgus (acquired), right foot M20.[address] [address] 09/03/2024 Radha Reynoso Right foot pain M79.671 ; Plantar wart B07.0 ; Pain in right toe(s) M79.674 ; Other hammer toe(s) (acquired), right foot M20.41 ; Pain in left toe(s) M79.675 ; Other hammer toe(s) (acquired), left foot M20.42 ; Subluxation of metatarsophalangeal joint of toe, initial encounter S93.149A and Raynaud's disease without gangrene I73.[address] [address] 05/09/2024 Yosef Harvey Assessments Encounter Date Diagnosis [...] X ray : Foot, right 3V 09/14/2022 25904-Ebdr Destruction, 1-14 09/03/2024 01306-XUYK SKIN LESIONS, 2 TO 4 09/15/19 23 Insurance Providers Payer Name Payer Address Payer Phone Subscriber Number Group Number Insured Name Patient Relationship to Insured Coverage Start Date Coverage End Date [employer] 65 Medicare Preferred [address] [place] [address] [id number] Yolis Brizuela Self - patient is the [...]
--- OUTSIDE RECORDS SUMMARY | 2024-10-31 13:02 | XMS_ITS | Encounter Summary ---
Author Organization [facility] Address [address] [place] [address] Phone Care Team Providers Care Churn Driller Helper Name Role Phone Lico Olivares MD Unavailable [phone] Pro Donahue PA-C Primary Care Provider [phone] Clayton Tucker MD Unavailable [phone] Reason for Visit * Reason Comments Medication Refill Encounter Details Date Type Department Care Team (Late st Contact Info) Description 10/15/2024 Refill [facility] [place] Internal Medicine [address] [place], [place] [phone] Pro Donahue PA-C [address] [place] [address] [email or web address] Medication Refill Social History Tobacco Use Types Packs/Day Years [...] on file documented as of this encounter Progress Notes * Santa Rosario CMA - 10/15/2024 3:25 PM EDT Rx Care Gap Status - Instructions for Clinical Staff (prescriber discretion applies): > Mismatch review guide > Labs due: Please remind patient. > Orders needed: Click OPA and Accept to open SmartSet. CBC LFTs - Needs order * Visit Info Last visit: 10/08/2024 [facility] > Requested f/u: Return if symptoms worsen or fail to improve. Upcoming visit: 03/02/2025 Pro Donahue PA-C - [facility] ACTIONS TAKEN BY Santa Rosario CMA - Criteria met. NSAID Rx Protocol - Daily treatment for inflammatory arthritis/rheumatology use - celecoxib Criteria met; renew for up to 12 months. Visit in the past 14 months: Yes Clinical criteria: - BMP within past year: Yes - LFTs within past year: No - CBC within past year: None (has active order) Lab Results Component Value Date SODIUM 140 01/16/2023 Potassium level - External 4.1 09/01/2024 CHLORIDE 103 01/16/2023 CO2 26 01/16/2023 BUN 14 01/16/2023 Creatinine, serum - External 1.04 09/01/2024 EGFR 58 (L) 01/16/2023 Lab Results Component Value Date Creatinine, serum - External 1.04 09/01/2024 CREATININE 1.00 01/16/2023 Creatinine - External 1.23 08/19/2024 EGFR 58 (L) 01/16/2023 EGFR 58 (L) 01/10/2022 EGFR 72 01/04/2021 Lab Results Component Value Date WBC 7.37 01/16/2023 HCT 39.4 01/16/2023 HGB 12.7 01/16/2023 PLT 243 01/16/2023 Lab Results Component Value Date AST 19 01/16/2023 ALT - External <6 08/19/2024 ALKALINE PHOSPHATASE 66 01/16/2023 TOTAL BILIRUBIN 0.6 01/16/2023 No Health Maintenance Labs Overdue documented in this encounter Plan of Treatment Upcoming Encounters Date Type Department Care Team (Late st Contact Info) Description 03/02/2025 2:40 PM EST Office Visit [facility] Internal Medicine [address] [place], [place] [phone] Pro Donhaue PA-C [address] [place], [place] [phone] [email or web address] documented as of this encounter Visit Diagnoses Not on filedocumented in this encounter Additional Health Concerns Assessment Noted Time PHQ-2 Depression Total Score: 0 02/25/20 24 2:22 PM EST documented as of this encounter Care Teams Churn Driller Helper Relationship Specialty Start Date End Date Pro Donahue PA-C [address] [place] [address] PCP - General Physician Drafter Tool Design 09/24/23 Lico Olivares MD [address] [place], [place] [phone] Insurance Assigned Provider Internal Medicine 07/05/18 Clayton Tucker MD [address] [place] [address] Rheumatology 02/25/24 documented as of this encounter Additional Source Comments The information contained in this document represents components of the legal health record. It is not the complete legal health record.[facility]
--- OUTSIDE RECORDS SUMMARY | 2024-10-31 13:02 | XMS_ITS | Encounter Summary ---
Author Organization [facility] Address [facility] [employer] [facility] [address] [place] [address] Phone Care Team Providers Care Personnel Training Officer Name Role Phone Lico Olivares MD Unavailable [phone] Pro Donahue PA-C Primary Care Provider [phone] Clayton Tucker MD Unavailable [phone] Reason for Visit * Reason Onset Date Comments DELACRUZ 09/29/2024 Encounter Details Date Type Department Care Team (Late st Contact Info) Description 09/29/2024 Telephone [facility] Internal Medicine [address] [place], [place] [phone] Pro Donahue PA-C [address] [place], [place] [phone] [email or web address] DELACRUZ Social History Tobacco Use Types Packs/Day Years [...] as of this encounter Progress Notes * Luiza Duckworth RN - 09/29/2024 10:17 AM EDT [facility] for Yolis to call back. * Anton Johnson - 09/29/2024 9:53 AM EDT Patient called states she was seen two weeks ago for cough/cold. She states she no longer has that but is experiencing DELACRUZ and even with speaking she runs out of air. She is booked tomorrow with Cristina. To nursing to triage documented in this encounter Plan of Treatment Upcoming Encounters Date Type Department Care Team (Late st Contact Info) Description 03/02/2025 2:40 PM EST Office Visit [facility] [place] Internal Medicine [address] [place] [address] Pro Donahue PA-C [address] [place] [address] [email or web address] documented as of this encounter Visit Diagnoses Not on filedocumented in this encounter Additional Health Concerns Assessment Noted Time PHQ-2 Depression Total Score: 0 02/25/20 24 2:22 PM EST documented as of this encounter Care Teams Personnel Training Officer Relationship Specialty Start Date End Date Pro Donahue PA-C [address] [place] [address] [email or web address] PCP - General Physician Integrated Circuit Layout Designer 09/24/23 Lico Olivares MD [address] [place] [address] Insurance Assigned Provider Internal Medicine 07/05/18 Clayton Tucker MD [address] [place] [address] Rheumatology 02/25/24 documented as of this encounter Additional Source Comments The information contained in this document represents components of the legal health record. It is not the complete legal health record.[facility]
== END ==
LOC: HO.CARD 12:39
PROVIDERS: PCP Physician Assistant Surgical
DX: I10 Essential (primary) hypertension (principal)
CPT/HCPCS: 93306

== ENCOUNTER → 2024-10-31 12:43 | Outpatient (BNV) | payer MEDICARE, SELFPAY | PROVIDERS: PCP Physician Assistant Surgical; Visit Provider Internal Medicine | DX: I10 Essential (primary) hypertension (principal) | CPT/HCPCS: 93306 ==